=== PATIENT | male | born 1960 | race Two or more races ===

== ENCOUNTER 2019-08-21 08:52 | Observation (INO) | payer BC ==
[~2019-08-21] VITALS: Ht 165.1 cm; Wt 83.1 kg
[~2019-08-21 08:52] MED LIST: CHOL500016 PO; GINK120C PO; HYDR-2679 PO; LISI1TAB19 PO; SIMV40TA18 PO
--- NOTE | 2019-08-21 09:18 | PHYS DOC ---
Past Medical History Additional Past Medical Histor: hypertension high cholesterol and coronary artery disease Additional Past Surgical Histo: history of CABG 2 years ago Smoking: Less than 1pk/day Alcohol Use: None Drug Use: None Adult General Chief Complaint Chief Complaint: syncope HPI HPI 59 yo M presenting to the ED with a syncope. He reports that he was coughing throughout the night. He was feeling mildly lightheaded immediately go the restroom so his helped him over to the commode when he had a syncopal episode. It was a witnessed episode. No shaking or tongue biting. No fecal or urinary incontinence. She was able to gently lay him down to the floor. EMS was called. He woke up within seconds. EMS initially had a low blood pressure on arrival of 90 systolic which has improved upon arrival here his blood pressures in the 140s. He denies any symptoms otherwise and is not coughing in the examination room he does not report any fevers at home and otherwise feels well. He denies prior to the event having any symptoms. He denies palpitations or chest pain prior to the event. He has never had a DVT or PE. Review of systems is negative for headache vision changes slurred speech or focal neurologic deficits. Negative for chest pain abdominal pain vomiting fevers chills. Positive for a dry nonproductive cough overnight. A ED course: 59-year-old male presenting with a syncopal episode. EKG obtained and reviewed by myself shows sinus rhythm with a regular rate. Mild repolarization in lead V2 and V3. Some ST depression in lead 1 and aVL. Does not meet STEMI criteria. CBC shows mildly elevated white blood cell count. Chemistry panel shows mildly elevated creatinine. Troponin normal. D-dimer within normal limits. While the patient was in the emergency department the patient had a episode where he became hypotensive and bradycardic diaphoretic and pale for approximately 20 seconds. He was put in Trendelenburg and his symptoms resolved. He will be admitted for telemetry monitoring and cardiology consultation. I spoke with Dr. Connors who accepts patient for admission. I also spoke with our optical systems engineer about the patient. Current Medications Current Medications Current Medications Medications (Trade) Dose Ordered Sig/Omar Start Time Stop Time Status Last Admin Dose Admin Sodium Chloride 1,000 ml @ 1,000 mls/hr 1X ONCE 08/21/19 10:15 08/21/19 13:05 DC 08/21/19 10:08 1,000 MLS/HR Allergies Allergies Allergies Coded Allergies Type Severity Reaction Last Updated Verified No Known Drug Allergies 03/26/14 No Physical Exam Physical Exam Constitutional: Well developed, well nourished, no acute distress, non-toxic appearance. [] HENT: Normocephalic, atraumatic, bilateral external ears normal, oropharynx moist, no oral exudates, nose normal. [] Eyes: PERRLA, EOMI, conjunctiva normal, no discharge. [] Neck: Normal range of motion, no tenderness, supple, no stridor. [] Cardiovascular:Heart rate regular rhythm, no murmur [] Lungs & Thorax: Bilateral breath sounds clear to auscultation [] Abdomen: Bowel sounds normal, soft, no tenderness, no masses, no pulsatile masses. [] Skin: Warm, dry, no erythema, no rash. [] Back: No tenderness, no CVA tenderness. [] Extremities: No tenderness, no cyanosis, no clubbing, ROM intact, no edema. [] Neurologic: Mental status: Awake oriented and alert x3 Cranial nerves: Extraocular movements intact, eyebrows maddy bilaterally, smile symmetric, uvula elevation nl, shoulder shrug intact bilaterally, tongue pr otrusion normal DTRs: 2+ Sensation: equal and normal in all extremities Strength: 5/5 in upper and lower extremities bilaterally Psychologic: Affect normal, judgement normal, mood normal. [] Current Patient Data Vital Signs Vital Signs Date Time Temp Pulse Resp B/P (MAP) Pulse Ox O2 Delivery O2 Flow Rate FiO2 08/21/19 11:09 74 16 126/64 (84) 94 Room Air 08/21/19 08:56 98.5 98.5 Lab Values Laboratory Tests Test 08/21/19 10:08 White Blood Count 12.6 x10^3/uL (4.0-11.0) H Red Blood Count 4.90 x10^6/uL (4.30-5.70) Hemoglobin 14.9 g/dL (13.0-17.5) Hematocrit 42.9 % (39.0-53.0) Mean Corpuscular Volume 88 fL (79-100) Mean Corpuscular Hemoglobin 31 pg (25-35) Mean Corpuscular Hemoglobin Concent 35 g/dL (31-37) Red Cell Distribution Width 13.2 % (11.5-14.5) Platelet Count 160 x10^3/uL (140-400) Neutrophils (%) (Auto) 65 % (31-73) Lymphocytes (%) (Auto) 26 % (24-48) Monocytes (%) (Auto) 8 % (0-9) Eosinophils (%) (Auto) 1 % (0-3) Basophils (%) (Auto) 1 % (0-3) Neutrophils # (Auto) 8.2 x10^3/uL (1.8-7.7) H Lymphocytes # (Auto) 3.3 x10^3/uL (1.0-4.8) Monocytes # (Auto) 0.9 x10^3/uL (0.0-1.1) Eosinophils # (Auto) 0.1 x10^3/uL (0.0-0.7) Basophils # (Auto) 0.1 x10^3/uL (0.0-0.2) D-Dimer (Marianne) 0.43 ug/mlFEU (0.00-0.50) Sodium Level 134 mmol/L (136-145) L Potassium Level 4.1 mmol/L (3.5-5.1) Chloride Level 100 mmol/L (98-107) Carbon Dioxide Level 23 mmol/L (21-32) Anion Gap 11 (6-14) Blood Urea Nitrogen 16 mg/dL (8-26) Creatinine 1.5 mg/dL (0.7-1.3) H Estimated GFR (Cockcroft-Gault) 47.6 BUN/Creatinine Ratio 11 (6-20) Glucose Level 111 mg/dL (70-99) H Calcium Level 9.2 mg/dL (8.5-10.1) Magnesium Level 1.9 mg/dL (1.8-2.4) Total Bilirubin 0.4 mg/dL (0.2-1.0) Aspartate Amino Transferase (AST) 19 U/L (15-37) Alanine Aminotransferase (ALT) 23 U/L (16-63) Alkaline Phosphatase 57 U/L (46-116) Troponin I Quantitative < 0.017 ng/mL (0.000-0.055) Total Protein 6.9 g/dL (6.4-8.2) Albumin 3.6 g/dL (3.4-5.0) Albumin/Globulin Ratio 1.1 (1.0-1.7) Triglycerides Level 149 mg/dL (0-150) Cholesterol Level 198 mg/dL (0-200) LDL Cholesterol, Calculated 136 mg/dL (0-100) H VLDL Cholesterol, Calculated 30 mg/dL (0-40) Non-HDL Cholesterol Calculated 166 mg/dL (0-129) H HDL Cholesterol 32 mg/dL (40-60) L Cholesterol/HDL Ratio 6.2 Thyroid Stimulating Hormone (TSH) 1.945 uIU/mL (0.358-3.74) Laboratory Tests 08/21/19 10:08 Laboratory Tests 08/21/19 10:08 EKG EKG [] Radiology/Procedures Radiology/Procedures [] Course & Med Decision Making Course & Med Decision Making Pertinent Labs and Imaging studies reviewed. (See chart for details) [] Dragon Disclaimer Dragon Disclaimer This electronic medical record was generated, in whole or in part, using a voice recognition dictation system. Departure Departure Impression: Primary Impression: Syncope Disposition: ADMITTED INPATIENT Condition: STABLE Referrals: ROOPA PRICE MD (PCP) JOSELYN MILLER MD Aug 21, 2019 09:18
--- NOTE | 2019-08-21 09:22 | EKG ---
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
--- NOTE | 2019-08-21 09:22 | RAD ---
EXAM: Chest, single view. HISTORY: Syncope. COMPARISON: None. FINDINGS: A frontal view of the chest is obtained. There is no infiltrate, pleural effusion or pneumothorax. The heart is normal in size. There is evidence of prior CABG. IMPRESSION: No acute pulmonary finding. Electronically signed by: Louisa Tavares MD (08/21/2019 9:19 AM) [facility]
[2019-08-21] MEDS ORDERED: IV NORMAL SALINE 1000ML BAG 1,000 ML IV ONE (10:15)
[2019-08-21 10:19] LABS: BASO # 0.1 x10^3/uL (0.0-0.2); BASO % 1 % (0-3); EOS # 0.1 x10^3/uL (0.0-0.7); EOS % 1 % (0-3); HEMATOCRIT 42.9 % (39.0-53.0); HEMOGLOBIN 14.9 g/dL (13.0-17.5); LYMPH # 3.3 x10^3/uL (1.0-4.8); LYMPH % 26 % (24-48); MEAN CORPUSCULAR HEMOGLOBIN 31 pg (25-35); MEAN CORPUSCULAR HGB CONC 35 g/dL (31-37); MEAN CORPUSCULAR VOLUME 88 fL (79-100); MONO # 0.9 x10^3/uL (0.0-1.1); MONO % 8 % (0-9); NEUT # 8.2 x10^3/uL (1.8-7.7); NEUT % 65 % (31-73); PLATELET COUNT 160 x10^3/uL (140-400); RED CELL DISTRIBUTION WIDTH 13.2 % (11.5-14.5); WHITE BLOOD COUNT 12.6 x10^3/uL (4.0-11.0)
[2019-08-21 10:25] LABS: CALCIUM 9.2 mg/dL (8.5-10.1); CREATININE 1.5 mg/dL (0.7-1.3); GFR 47.6; POTASSIUM 4.1 mmol/L (3.5-5.1)
[2019-08-21 10:31] LABS: ALBUMIN 3.6 g/dL (3.4-5.0); ALBUMIN/GLOBULIN RATIO 1.1 (1.0-1.7); MAGNESIUM 1.9 mg/dL (1.8-2.4); TOTAL BILIRUBIN 0.4 mg/dL (0.2-1.0); TOTAL PROTEIN 6.9 g/dL (6.4-8.2)
--- NOTE | 2019-08-21 12:17 | PDOC2 ---
SARAH GARZA MYSQL DATABASE DEVELOPER 08/21/19 1217: CARDIAC CONSULT DATE OF CONSULT Date of Consult DATE: 08/21/19 TIME: 12:13 REASON FOR CONSULT Reason for Consult: Syncope REFERRING PHYSICIAN Referring Physician: Dr. Chamberlain SOURCE Source: Chart review, Patient HISTORY OF PRESENT ILLNESS HISTORY OF PRESENT ILLNESS This is a 59 yo male who presented secondary to syncopal episode. Patient he was eating his breakfast as usual this morning and began feeling nauseated and dizzy. Subsequently passed out. reports he was only out for a brief second. He became alert, but was initially unable to speak. Finally was able to utter that he needed to use the restroom. attempted to get him there but he passed out again. She was able to lower him to the floor. was concerned that he was having a stroke as his right hand was stiff and he was unable to communicate. EMS was called. Patient is currently back to baseline. In ED, staff put another IV in and he passed out briefly again. ED provider reports he became briefly bradycardic when this occurred, although no acute event were recorded on telemetry. Son reports he has passed out before from the sight of blood. Has a history of CAD c/p CABG at [facility] 02/12/2018. Followed with manager mall there for about a year, but has not been back. Was on blood pressure medication, statin, and ASA, but has not taken these in a couple of months. Patient also reporting intermittent diarrhea for some time. Has become more frequent recently. Has been constant for the last 2 weeks. Any time he eats, he immediately has to go to the bathroom and has loose stools. Carotid massage performed at bedside with patient standing. Baseline HR in the low 90's and dropped to 52 and felt dizzy as if he was going to faint and laid back on the bed. No pauses were noted. PAST MEDICAL HISTORY Cardiovascular: CAD, HTN, Hyperlipidemia GI: GERD PAST SURGICAL HISTORY Past Surgical History: CABG, Hernia Repair FAMILY HISTORY Family History: Cancer (leukemia ), Stroke SOCIAL HISTORY Smoke: No ALCOHOL: occassional Drugs: None Lives: with Family ALLERGIES ALLERGIES: Coded Allergies: No Known Drug Allergies (Unverified , 03/26/14) ROS Review of System 14 point ROS conducted with pertinent positives noted above in HPI PHYSICAL EXAM General: Alert, Oriented X3, Cooperative, No acute distress HEENT: Atraumatic, Mucous membr. moist/pink Lungs: Clear to auscultation, Normal air movement Heart: Regular rate, Normal S1, Normal S2, No murmurs Abdomen: Soft, No tenderness Extremities: No edema, Normal pulses Skin: No significant lesion Neuro: Strength at 5/5 X4 ext, Sensation intact Psych/Mental Status: Mental status NL, Mood NL MUSCULOSKELETAL: Osteoarthritic changes both hands VITALS/I&O VITALS/I&O: Vital Signs Date Time Temp Pulse Resp B/P (MAP) Pulse Ox O2 Delivery O2 Flow Rate FiO2 08/21/19 08:56 98.5 86 16 145/69 (94) 95 Room Air 98.5 LABS Lab: Laboratory Tests Test 08/21/19 10:08 White Blood Count 12.6 x10^3/uL (4.0-11.0) H Red Blood Count 4.90 x10^6/uL (4.30-5.70) Hemoglobin 14.9 g/dL (13.0-17.5) Hematocrit 42.9 % (39.0-53.0) Mean Corpuscular Volume 88 fL (79-100) Mean Corpuscular Hemoglobin 31 pg (25-35) Mean Corpuscular Hemoglobin Concent 35 g/dL (31-37) Red Cell Distribution Width 13.2 % (11.5-14.5) Platelet Count 160 x10^3/uL (140-400) Neutrophils (%) (Auto) 65 % (31-73) Lymphocytes (%) (Auto) 26 % (24-48) Monocytes (%) (Auto) 8 % (0-9) Eosinophils (%) (Auto) 1 % (0-3) Basophils (%) (Auto) 1 % (0-3) Neutrophils # (Auto) 8.2 x10^3/uL (1.8-7.7) H Lymphocytes # (Auto) 3.3 x10^3/uL (1.0-4.8) Monocytes # (Auto) 0.9 x10^3/uL (0.0-1.1) Eosinophils # (Auto) 0.1 x10^3/uL (0.0-0.7) Basophils # (Auto) 0.1 x10^3/uL (0.0-0.2) D-Dimer (Marianne) 0.43 ug/mlFEU (0.00-0.50) Sodium Level 134 mmol/L (136-145) L Potassium Level 4.1 mmol/L (3.5-5.1) Chloride Level 100 mmol/L (98-107) Carbon Dioxide Level 23 mmol/L (21-32) Anion Gap 11 (6-14) Blood Urea Nitrogen 16 mg/dL (8-26) Creatinine 1.5 mg/dL (0.7-1.3) H Estimated GFR (Cockcroft-Gault) 47.6 BUN/Creatinine Ratio 11 (6-20) Glucose Level 111 mg/dL (70-99) H Calcium Level 9.2 mg/dL (8.5-10.1) Magnesium Level 1.9 mg/dL (1.8-2.4) Total Bilirubin 0.4 mg/dL (0.2-1.0) Aspartate Amino Transferase (AST) 19 U/L (15-37) Alanine Aminotransferase (ALT) 23 U/L (16-63) Alkaline Phosphatase 57 U/L (46-116) Troponin I Quantitative < 0.017 ng/mL (0.000-0.055) Total Protein 6.9 g/dL (6.4-8.2) Albumin 3.6 g/dL (3.4-5.0) Albumin/Globulin Ratio 1.1 (1.0-1.7) Laboratory Tests 08/21/19 10:08 Laboratory Tests 08/21/19 10:08 ASSESSMENT/PLAN ASSESSMENT/PLAN 1. Syncope; likely vasovagal. Possible dehydration component 2. CAD s/p CABG 02/12/[address] [facility] 3. Hypertension; controlled 4. Hyperlipidemia; has not been taking statin for 2 months 5. CHRISTOPHER 6. Diarrhea; persistent x2 weeks Recommendations Monitor tele Agree with IVFs Echo to assess LV systolic function Obtain cardiac records from [facility] Resume ASA, statin therapy VICKY BLACKWELL MD 08/22/19 0814: CARDIAC CONSULT ASSESSMENT/PLAN ASSESSMENT/PLAN Patient seen and examined 08/21/19. Agree with STRAW HAT PRESSER's assessment and plan. Syncope appears to be vasovagal in the background of dehydration 2-D echo showed normal LV function without any significant structural abnormalities CAD status clinically stable We will consider event monitor as an outpatient Continue intravenous hydration Thank you for your consultation SARAH GARZA APRN Aug 21, 2019 12:17 VICKY BLACKWELL MD Aug 22, 2019 08:14
[2019-08-21 12:47] LABS: CHOLESTEROL/HDL RATIO 6.2
--- NOTE | 2019-08-21 13:41 | EKG ---
[facility] [address] [place] [address] Test Date: 2019-08-21 Test Time: 10:07:12 Pat Name: SHAVON TEJADA Department: Room: 210 1 Gender: M Configuration Engineer: : 1960 Requested By: JOSELYN MILLER Order Number: [id number] Reading MD: Measurements Intervals [place] Rate: 64 P: 45 [place]: 168 QRS: 51 QRSD: 90 T: 89 QT: 418 QTc: 431 Interpretive Statements SINUS RHYTHM LEFT ATRIAL ABNORMALITY T ABNORMALITY IN ANTERIOR LEADS HIGH LATERAL LEADS ABNORMAL ECG RI6.01 No previous ECG available for comparison
--- NOTE | 2019-08-21 14:20 | NUR ---
The patient, SHAVON TEJADA, 59 y/o, M admitted by JORDANA RINCON III, DO, was given written information regarding hospital policies, unit procedures and contact persons. Patient arrived to unit via gurney, ambulated to bed by self. No complaints of dizziness, VSS. at bedside. Call light within reach. Will continue to monitor.
[2019-08-21 14:24] VITALS: BP 132/74
--- NOTE | 2019-08-21 16:05 | CARD ---
MR#: [id number] Date of Study: 08/21/2019 Ordering Physician: SARAH GARZA, Referring Physician: SARAH GARZA, Tech: Ignacia Harding [facility] APPROVED REPORT EXAM: Two-dimensional and M-mode echocardiogram with Doppler and color Doppler. Other Information Quality : Good INDICATION Syncope 2D DIMENSIONS RVDd2.9 (2.9-3.5cm)Left Atrium(2D)3.4 (1.6-4.0cm) IVSd1.0 (0.7-1.1cm)Aortic Root(2D)3.6 (2.0-3.7cm) LVDd4.7 (3.9-5.9cm)LVOT Diameter2.2 (1.8-2.4cm) PWd1.1 (0.7-1.1cm)LVDs3.6 (2.5-4.0cm) FS (%) 24.1 %SV50.2 ml LVEF(%)48.0 (>50%) Aortic Valve AoV Peak Jonathan.98.6cm/sAoV VTI16.8cm AO Peak GR.3.9mmHgLVOT Peak Jonathan.92.9cm/s AO Mean GR.2mmHgAVA (VMAX)3.56cm2 MALENA (VTI)4.30cm2 Mitral Valve MV E Zlqqgqdi51.2cm/sMV DECEL HKDF030kh MV A Ufukeaik40.7cm/sE/A Ratio1.3 Tricuspid Valve TR P. Lyeynmlh190lq/sRAP [id number] TR Peak Gr.21sxEnEWZZ32awKy Pulmonary Vein S1 Cpesupox62.6cm/sD2 Tmkukwch50.8cm/s LEFT VENTRICLE The left ventricle is normal size. There is normal left ventricular wall thickness. The left ventricu lar systolic function is normal. The ejection fraction is 50-55%. Septal motion consistent with post- operative state. Transmitral Doppler flow pattern is Grade II-pseudonormal filling dynamics. RIGHT VENTRICLE The right ventricle is normal size. The right ventricular systolic function is normal. ATRIA The left atrium size is normal. The right atrium size is normal. The interatrial septum is intact wit h no evidence for an atrial septal defect or patent foramen ovale as noted on 2-D or Doppler imaging. AORTIC VALVE The aortic valve is normal in structure and function. Doppler and Color Flow revealed no significant aortic regurgitation. There is no significant aortic valvular stenosis. MITRAL VALVE The mitral valve is calcified but opens well. There is no evidence of mitral valve prolapse. There is no mitral valve stenosis. Doppler and Color-flow revealed trace to mild mitral regurgitation. TRICUSPID VALVE The tricuspid valve is normal in structure and function. Doppler and Color Flow revealed mild tricusp id regurgitation. The PA pressure was estimated at 25 mmHg. There is no tricuspid valve stenosis. PULMONIC VALVE The pulmonary valve is normal in structure and function. Doppler and Color Flow revealed trace pulmon ic valvular regurgitation. There is no pulmonic valvular stenosis. GREAT VESSELS The aortic root is normal in size. The ascending aorta is not well seen. The IVC is normal in size an d collapses >50% with inspiration. PERICARDIAL EFFUSION There is no evidence of significant pericardial effusion. Critical Notification Critical Value: No <Conclusion> The left ventricular systolic function is normal. The ejection fraction is 50-55%. Trace to mild mitral regurgitation. Mild tricuspid regurgitation. The PA pressure was estimated at 25 mmHg. There is no evidence of significant pericardial effusion. Signed by : Alcides Charles, Electronically Approved : 08/21/2019 16:05:21
[2019-08-21] MEDS ORDERED: LIPITOR80 MG PO (16:06)
[2019-08-21] MEDS ORDERED: CARV12.511 PO (16:06)
[2019-08-21] MEDS ORDERED: ASPI-630 PO (16:06)
[2019-08-21] MEDS: ASPIRIN ENTERIC COATED 81 MG TABLET.DR. PO SCH (17:10)
--- NOTE | 2019-08-21 17:19 | PDOC1 ---
History and Physical Date of Admission: Date of Admission DATE: 08/21/19 TIME: 17:16 Chief Complaint: Problems: (1) Inguinal hernia recurrent bilateral (2) Syncope Chief Complain: syncope History of Present Illness: HPI: This is a pleasant 59-year-old male who presented with a syncopal episode. His witnessed it He was coughing throughout the night He felt kind of lightheaded He denies any incontinence but states he did lose consciousness Rates his symptoms at 7 out of 10 When he woke up he was slightly confused He's been having presyncopal episodes for some time He's tried taking more medications but that did not seem to help Moving makes it worse in stomach some better when he is dizzy I discussed the case with the ER physician we are going to admit the patient and consult cardiology Past Medical/Surgical History: PMH/PSH: Additional Past Medical Histor: hypertension high cholesterol and coronary artery disease Additional Past Surgical Histo: history of CABG 2 years ago Smoking: Less than 1pk/day Allergies: Allergies: Coded Allergies: No Known Drug Allergies (Unverified , 03/26/14) Family History: Family History: Coronary artery disease Social History: Social Hisoty: He does not drink or take drugs 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 Current Medications: Current Medications Current Medications Sodium Chloride 1,000 ml @ 1,000 mls/hr 1X ONCE IV Last administered on 08/21/19at 10:08; Start 08/21/19 at 10:15; Stop 08/21/19 at 13:05; Status DC Aspirin (Ecotrin) 81 mg DAILYWBKFT PO Last administered on 08/21/19at 17:10; Start 08/21/19 at 15:00 Atorvastatin Calcium (Lipitor) 40 mg QHS PO ; Start 08/21/19 at 21:00 Active Scripts Active Reported Aspirin 81 Mg Tab.chew 1 Tab PO DAILY Lipitor (Atorvastatin Calcium) 80 Mg Tablet 80 Mg PO HS Carvedilol (Carvedilol) 12.5 Mg Tablet 12.5 Mg PO BIDWMEALS ROS: Review of Systems Review of System REVIEW OF SYSTEMS: GENERAL: Denies weakness SKIN: No bruising, hair changes or rashes. EYES: No blurred, double or loss of vision. NOSE AND THROAT: No history of nosebleeds, hoarseness or sore throat. HEART: No history of palpitations, chest pain or shortness of breath on exertion. LUNGS: Denies cough, hemoptysis, wheezing or shortness of breath. GASTROINTESTINAL: Denies changes in appetite, nausea, vomiting, diarrhea or constipation. GENITOURINARY: No history of frequency, urgency, hesitancy or nocturia. NEUROLOGIC: Complains of syncopal episode and presyncopal episodes PSYCHIATRIC: No history of panic, anxiety or depression. ENDOCRINE: No history of heat or cold intolerance, polyuria or polydipsia. EXTREMITIES: Denies joint pain, pain on walking or stiffness. Physical Exam: Vital Signs: Vital Signs Date Time Temp Pulse Resp B/P (MAP) Pulse Ox O2 Delivery O2 Flow Rate FiO2 08/21/19 15:00 Room Air 08/21/19 14:24 98.2 77 18 132/74 (93) 96 98.2 Physcial Exam: GEN: No apparent distress. Alert and oriented HEENT: Normal cephalic, atraumatic, external auditory canals are patent EYES: Extraocular muscles are intact, pupil are equally round and reactive to light and accommodation MUSCULOSKELETAL: Well developed , well nourished, good range of motion ENDOCRINE: No thyromegaly was palpated LYMPHATICS: No cervical chain or axillary nodes were noted HEMATOPOIETIC: No bruising NECK: Supple, no JVD, no thyromegaly was noted LUNGS: Clear to auscultation in all lung gould without rhonchi or wheezing HEART: RRR, S!, S2 present. Peripheral pulses intact, no obvious murmurs noted ABDOMEN: Soft, nontender. Positive bowel sounds, no organomegaly, normal bowel sounds EXTREMITIES: Without clubbing, cyanosis, or edema. Pedal pulses intact. Negative Homans sign NEUROLOGIC: Normal speech and tone. A&O x 3, moves all extremities, no obvious focal deficits PSYCHIATRIC: Normal affect, normal mood. Stable SKIN: No ulcerations or rashes, good skin turgor, no jaundice VASCULAR: Good capillary refill, neurovascular bundle appears to be intact Labs: Labs: Laboratory Tests Test 08/21/19 10:08 08/21/19 14:18 White Blood Count 12.6 x10^3/uL (4.0-11.0) Red Blood Count 4.90 x10^6/uL (4.30-5.70) Hemoglobin 14.9 g/dL (13.0-17.5) Hematocrit 42.9 % (39.0-53.0) Mean Corpuscular Volume 88 fL (79-100) Mean Corpuscular Hemoglobin 31 pg (25-35) Mean Corpuscular Hemoglobin Concent 35 g/dL (31-37) Red Cell Distribution Width 13.2 % (11.5-14.5) Platelet Count 160 x10^3/uL (140-400) Neutrophils (%) (Auto) 65 % (31-73) Lymphocytes (%) (Auto) 26 % (24-48) Monocytes (%) (Auto) 8 % (0-9) Eosinophils (%) (Auto) 1 % (0-3) Basophils (%) (Auto) 1 % (0-3) Neutrophils # (Auto) 8.2 x10^3/uL (1.8-7.7) Lymphocytes # (Auto) 3.3 x10^3/uL (1.0-4.8) Monocytes # (Auto) 0.9 x10^3/uL (0.0-1.1) Eosinophils # (Auto) 0.1 x10^3/uL (0.0-0.7) Basophils # (Auto) 0.1 x10^3/uL (0.0-0.2) D-Dimer (Marianne) 0.43 ug/mlFEU (0.00-0.50) Sodium Level 134 mmol/L (136-145) Potassium Level 4.1 mmol/L (3.5-5.1) Chloride Level 100 mmol/L (98-107) Carbon Dioxide Level 23 mmol/L (21-32) Anion Gap 11 (6-14) Blood Urea Nitrogen 16 mg/dL (8-26) Creatinine 1.5 mg/dL (0.7-1.3) Estimated GFR (Cockcroft-Gault) 47.6 BUN/Creatinine Ratio 11 (6-20) Glucose Level 111 mg/dL (70-99) Calcium Level 9.2 mg/dL (8.5-10.1) Magnesium Level 1.9 mg/dL (1.8-2.4) Total Bilirubin 0.4 mg/dL (0.2-1.0) Aspartate Amino Transf (AST/SGOT) 19 U/L (15-37) Alanine Aminotransferase (ALT/SGPT) 23 U/L (16-63) Alkaline Phosphatase 57 U/L (46-116) Troponin I Quantitative < 0.017 ng/mL (0.000-0.055) < 0.017 ng/mL (0.000-0.055) Total Protein 6.9 g/dL (6.4-8.2) Albumin 3.6 g/dL (3.4-5.0) Albumin/Globulin Ratio 1.1 (1.0-1.7) Triglycerides Level 149 mg/dL (0-150) Cholesterol Level 198 mg/dL (0-200) LDL Cholesterol, Calculated 136 mg/dL (0-100) VLDL Cholesterol, Calculated 30 mg/dL (0-40) Non-HDL Cholesterol Calculated 166 mg/dL (0-129) HDL Cholesterol 32 mg/dL (40-60) Cholesterol/HDL Ratio 6.2 Thyroid Stimulating Hormone (TSH) 1.945 uIU/mL (0.358-3.74) Laboratory Tests Test 08/21/19 10:08 08/21/19 14:18 White Blood Count 12.6 x10^3/uL (4.0-11.0) Red Blood Count 4.90 x10^6/uL (4.30-5.70) Hemoglobin 14.9 g/dL (13.0-17.5) Hematocrit 42.9 % (39.0-53.0) Mean Corpuscular Volume 88 fL (79-100) Mean Corpuscular Hemoglobin 31 pg (25-35) Mean Corpuscular Hemoglobin Concent 35 g/dL (31-37) Red Cell Distribution Width 13.2 % (11.5-14.5) Platelet Count 160 x10^3/uL (140-400) Neutrophils (%) (Auto) 65 % (31-73) Lymphocytes (%) (Auto) 26 % (24-48) Monocytes (%) (Auto) 8 % (0-9) Eosinophils (%) (Auto) 1 % (0-3) Basophils (%) (Auto) 1 % (0-3) Neutrophils # (Auto) 8.2 x10^3/uL (1.8-7.7) Lymphocytes # (Auto) 3.3 x10^3/uL (1.0-4.8) Monocytes # (Auto) 0.9 x10^3/uL (0.0-1.1) Eosinophils # (Auto) 0.1 x10^3/uL (0.0-0.7) Basophils # (Auto) 0.1 x10^3/uL (0.0-0.2) D-Dimer (Marianne) 0.43 ug/mlFEU (0.00-0.50) Sodium Level 134 mmol/L (136-145) Potassium Level 4.1 mmol/L (3.5-5.1) Chloride Level 100 mmol/L (98-107) Carbon Dioxide Level 23 mmol/L (21-32) Anion Gap 11 (6-14) Blood Urea Nitrogen 16 mg/dL (8-26) Creatinine 1.5 mg/dL (0.7-1.3) Estimated GFR (Cockcroft-Gault) 47.6 BUN/Creatinine Ratio 11 (6-20) Glucose Level 111 mg/dL (70-99) Calcium Level 9.2 mg/dL (8.5-10.1) Magnesium Level 1.9 mg/dL (1.8-2.4) Total Bilirubin 0.4 mg/dL (0.2-1.0) Aspartate Amino Transf (AST/SGOT) 19 U/L (15-37) Alanine Aminotransferase (ALT/SGPT) 23 U/L (16-63) Alkaline Phosphatase 57 U/L (46-116) Troponin I Quantitative < 0.017 ng/mL (0.000-0.055) < 0.017 ng/mL (0.000-0.055) Total Protein 6.9 g/dL (6.4-8.2) Albumin 3.6 g/dL (3.4-5.0) Albumin/Globulin Ratio 1.1 (1.0-1.7) Triglycerides Level 149 mg/dL (0-150) Cholesterol Level 198 mg/dL (0-200) LDL Cholesterol, Calculated 136 mg/dL (0-100) VLDL Cholesterol, Calculated 30 mg/dL (0-40) Non-HDL Cholesterol Calculated 166 mg/dL (0-129) HDL Cholesterol 32 mg/dL (40-60) Cholesterol/HDL Ratio 6.2 Thyroid Stimulating Hormone (TSH) 1.945 uIU/mL (0.358-3.74) Images: Images EXAM: Chest, single view. HISTORY: Syncope. COMPARISON: None. FINDINGS: A frontal view of the chest is obtained. There is no infiltrate, pleural effusion or pneumothorax. The heart is normal in size. There is evidence of prior CABG. IMPRESSION: No acute pulmonary finding. Assessment/Plan Assessment/Plan Syncope Plan Cardiac monitoring Serial enzymes Serial EKGs We'll consider an echo if cardiology agrees Consult cardiology Home meds DVT prophylaxis IV fluids Full code JORDANA RINCON III DO Aug 21, 2019 17:19
[2019-08-21] MEDS: guaiFENesin/CODEINE 100mg/10mg 5 ML LIQUID PO PRN ×2 (18:41→20:41)
[2019-08-21] MEDS: CARVEDILOL 12.5 MG TABLET. PO SCH (18:45)
[2019-08-21 18:47] VITALS: BP 152/72
[2019-08-21] MEDS ORDERED: ATORVASTATIN CALCIUM 40 MG TABLET. PO SCH (21:00)
[2019-08-21 22:27] VITALS: BP 142/76
[2019-08-22 02:20] VITALS: BP 137/79
[2019-08-22 03:58] LABS: BASO % 0 % (0-3); EOS # 0.1 x10^3/uL (0.0-0.7); EOS % 2 % (0-3); HEMATOCRIT 41.2 % (39.0-53.0); HEMOGLOBIN 14.5 g/dL (13.0-17.5); LYMPH # 2.4 x10^3/uL (1.0-4.8); LYMPH % 34 % (24-48); MEAN CORPUSCULAR HEMOGLOBIN 31 pg (25-35); MEAN CORPUSCULAR HGB CONC 35 g/dL (31-37); MEAN CORPUSCULAR VOLUME 87 fL (79-100); MONO # 0.6 x10^3/uL (0.0-1.1); MONO % 9 % (0-9); NEUT # 3.9 x10^3/uL (1.8-7.7); NEUT % 56 % (31-73); PLATELET COUNT 135 x10^3/uL (140-400); RED BLOOD COUNT 4.72 x10^6/uL (4.30-5.70); RED CELL DISTRIBUTION WIDTH 13.2 % (11.5-14.5); WHITE BLOOD COUNT 7.1 x10^3/uL (4.0-11.0)
[2019-08-22 04:16] LABS: CALCIUM 8.7 mg/dL (8.5-10.1); CREATININE 1.1 mg/dL (0.7-1.3); GFR 68.1; POTASSIUM 4.1 mmol/L (3.5-5.1)
[2019-08-22 07:00] VITALS: BP 152/82
[2019-08-22 08:31] VITALS: BP 145/74
[2019-08-22 08:34] VITALS: BP 145/81
[2019-08-22 08:37] VITALS: BP 84/58
[2019-08-22] MEDS: ASPIRIN ENTERIC COATED 81 MG TABLET.DR. PO SCH (09:04)
[2019-08-22] MEDS: CARVEDILOL 12.5 MG TABLET. PO SCH (09:04)
--- NOTE | 2019-08-22 10:32 | PDOC ---
[employer] PROGRESS NOTE Chief Complaint Chief Complaint Syncope Hypertension Hyperlipidemia Coronary artery disease s/p CABG GERD CHRISTOPHER- Acute tubular necrosis Diarrhea History of Present Illness History of Present Illness 08/22/19 Pt seen and examined Pt was laying in bed He reports he is doing well He denies additional syncopal episodes last night and this morning Pt's chart reviewed Vitals/I&O Vitals/I&O: Vital Signs Date Time Temp Pulse Resp B/P (MAP) Pulse Ox O2 Delivery O2 Flow Rate FiO2 08/22/19 09:04 74 147/74 08/22/19 08:00 Room Air 08/22/19 07:00 98.8 20 96 98.8 I & O 08/21/19 08/21/19 08/22/19 15:00 23:00 07:00 Intake Total 1000 ml 580 ml 400 ml Balance 1000 ml 580 ml 400 ml Physical Exam General: Alert, Oriented X3, Cooperative, No acute distress Heart: Regular rate, Normal S1, Normal S2, No murmurs Lungs: Clear Abdomen: Soft, No tenderness Extremities: No edema, Normal pulses Skin: No significant lesion Labs Labs: Laboratory Tests Test 08/21/19 14:18 08/21/19 17:50 08/22/19 03:35 Troponin I Quantitative < 0.017 ng/mL (0.000-0.055) < 0.017 ng/mL (0.000-0.055) White Blood Count 7.1 x10^3/uL (4.0-11.0) Red Blood Count 4.72 x10^6/uL (4.30-5.70) Hemoglobin 14.5 g/dL (13.0-17.5) Hematocrit 41.2 % (39.0-53.0) Mean Corpuscular Volume 87 fL (79-100) Mean Corpuscular Hemoglobin 31 pg (25-35) Mean Corpuscular Hemoglobin Concent 35 g/dL (31-37) Red Cell Distribution Width 13.2 % (11.5-14.5) Platelet Count 135 x10^3/uL (140-400) Neutrophils (%) (Auto) 56 % (31-73) Lymphocytes (%) (Auto) 34 % (24-48) Monocytes (%) (Auto) 9 % (0-9) Eosinophils (%) (Auto) 2 % (0-3) Basophils (%) (Auto) 0 % (0-3) Neutrophils # (Auto) 3.9 x10^3/uL (1.8-7.7) Lymphocytes # (Auto) 2.4 x10^3/uL (1.0-4.8) Monocytes # (Auto) 0.6 x10^3/uL (0.0-1.1) Eosinophils # (Auto) 0.1 x10^3/uL (0.0-0.7) Basophils # (Auto) 0.0 x10^3/uL (0.0-0.2) Sodium Level 135 mmol/L (136-145) Potassium Level 4.1 mmol/L (3.5-5.1) Chloride Level 101 mmol/L (98-107) Carbon Dioxide Level 26 mmol/L (21-32) Anion Gap 8 (6-14) Blood Urea Nitrogen 16 mg/dL (8-26) Creatinine 1.1 mg/dL (0.7-1.3) Estimated GFR (Cockcroft-Gault) 68.1 Glucose Level 95 mg/dL (70-99) Calcium Level 8.7 mg/dL (8.5-10.1) Review of Systems Review of Systems: no c/o CP no c/o SOB no c/o dizziness no c/o N/V Assessment and Plan Assessmemt and Plan Problems Medical Problems: (1) Syncope Status: Acute Assessment Syncope Hypertension Hyperlipidemia Coronary artery disease s/p CABG GERD CHRISTOPHER- Acute tubular necrosis Diarrhea Plan Cardiology following Completed ECHO with EF 50-55% without any significant structural abnormalities Cardiac monitoring Home meds DVT prophylaxis IV fluids Full code Plan for d/c pending specialists Comment Review of Relevant I have reviewed the following items ari (where applicable) has been applied. Medications: Current Medications Medications (Trade) Dose Ordered Sig/Omar Route PRN Reason Start Time Stop Time Status Last Admin Dose Admin Aspirin (Ecotrin) 81 mg DAILYWBKFT PO 08/21/19 15:00 08/22/19 09:04 Atorvastatin Calcium (Lipitor) 40 mg QHS PO 08/21/19 21:00 08/21/19 20:39 Guaifenesin/ Codeine Phosphate (Robitussin Ac) 5 ml PRN Q4HRS PRN PO COUGH 08/21/19 17:45 08/21/19 20:41 Carvedilol (Coreg) 12.5 mg BIDWMEALS PO 08/21/19 18:30 08/22/19 09:04 JORDANA RINCON III DO Aug 22, 2019 10:32
[2019-08-22 11:00] VITALS: BP 137/69
--- NOTE | 2019-08-22 14:10 | NUR ---
SS following for discharge planning. SS reviewed pt chart. Pt is from home with spouse and is currently on room air. SS will continue to follow for discharge planning.
--- NOTE | 2019-08-22 14:17 | PDOC ---
CARDIO Progress Notes Date and Time Date of Service 08/22/19 Time of Evaluation 1410 Subjective Subjective: No Chest Pain, No shortness of breath, No Palpitations Vitals Vitals Vital Signs Date Time Temp Pulse Resp B/P (MAP) Pulse Ox O2 Delivery O2 Flow Rate FiO2 08/22/19 11:00 98.8 82 18 137/69 (91) 93 Room Air 98.8 Weight Weight [ ] Input and Output Intake and Output Intake and Output 08/22/19 07:00 Intake Total 1980 ml Balance 1980 ml Intake Oral 980 ml IV Total 1000 ml # Voids 3 Laboratory Labs Laboratory Tests Test 08/21/19 14:18 08/21/19 17:50 08/22/19 03:35 Troponin I Quantitative < 0.017 ng/mL (0.000-0.055) < 0.017 ng/mL (0.000-0.055) White Blood Count 7.1 x10^3/uL (4.0-11.0) Red Blood Count 4.72 x10^6/uL (4.30-5.70) Hemoglobin 14.5 g/dL (13.0-17.5) Hematocrit 41.2 % (39.0-53.0) Mean Corpuscular Volume 87 fL (79-100) Mean Corpuscular Hemoglobin 31 pg (25-35) Mean Corpuscular Hemoglobin Concent 35 g/dL (31-37) Red Cell Distribution Width 13.2 % (11.5-14.5) Platelet Count 135 x10^3/uL (140-400) Neutrophils (%) (Auto) 56 % (31-73) Lymphocytes (%) (Auto) 34 % (24-48) Monocytes (%) (Auto) 9 % (0-9) Eosinophils (%) (Auto) 2 % (0-3) Basophils (%) (Auto) 0 % (0-3) Neutrophils # (Auto) 3.9 x10^3/uL (1.8-7.7) Lymphocytes # (Auto) 2.4 x10^3/uL (1.0-4.8) Monocytes # (Auto) 0.6 x10^3/uL (0.0-1.1) Eosinophils # (Auto) 0.1 x10^3/uL (0.0-0.7) Basophils # (Auto) 0.0 x10^3/uL (0.0-0.2) Sodium Level 135 mmol/L (136-145) Potassium Level 4.1 mmol/L (3.5-5.1) Chloride Level 101 mmol/L (98-107) Carbon Dioxide Level 26 mmol/L (21-32) Anion Gap 8 (6-14) Blood Urea Nitrogen 16 mg/dL (8-26) Creatinine 1.1 mg/dL (0.7-1.3) Estimated GFR (Cockcroft-Gault) 68.1 Glucose Level 95 mg/dL (70-99) Calcium Level 8.7 mg/dL (8.5-10.1) Physical Exam HEENT: Neck Supple W Full Motion Chest: Symmetric LUNGS: Clear to Auscultation Heart: S1S2, RRR Abdomen: Soft N/T Extremities: No Edema Neurology: alert, oriented, follow commands Assessment Assessment 1. Syncope; likely vasovagal with dehydration component. Echo with preserved LV systolic function, no significant structural abnormalities. No arrhythmias on tele 2. CAD s/p CABG 02/12/2018 at [facility] .clinically stable. CP free 3. Hypertension; controlled 4. Hyperlipidemia; statin resumed 5. CHRISTOPHER; resolved with hydration 6. Diarrhea; persistent x2 weeks Recommendations Encouraged oral hydration Continue secondary prevention; reinforced importance of medical compliance May discharge from a CV standpoint Will arrange for outpatient [facility] to r/o arrhythmia Follow up with Dr. Charles 10/03/19 at 1:30pm SARAH GARZA APRN Aug 22, 2019 14:17
[2019-08-22] MEDS ORDERED: CARV12.511 PO (14:28)
[2019-08-22] MEDS ORDERED: ASPI-630 PO (14:28)
[2019-08-22] MEDS ORDERED: LIPITOR80 MG PO (14:28)
--- NOTE | 2019-08-22 15:20 | NUR ---
Discharge Note: SHAVON TEJADA [address] [place] Discharge instructions and discharge home medications reviewed with Patient and a copy given. All questions have been answered and understanding verbalized. The following instructions and handouts were given: discharge instructions, syncope info, med info, follow up appt. Discontinued lines and drains: Peripheral IV intact. Patient discharged to Home or Self Care with Spouse via Ambulated at 1520.
== END 2019-08-22 15:17 | disposition home or self-care (01) ==
LOC: ER 08:52 → 2 NORTH 11:20
PROVIDERS: ADMIT Internal Medicine; ATTEND Internal Medicine
DX: R55 Syncope and collapse (principal); I10 Essential (primary) hypertension; K40.21 Bilateral inguinal hernia, without obstruction or gangrene, recurrent; E78.00 Pure hypercholesterolemia, unspecified; I25.10 Atherosclerotic heart disease of native coronary artery without angina pectoris; F17.210 Nicotine dependence, cigarettes, uncomplicated; Z95.1 Presence of aortocoronary bypass graft; Z79.82 Long term (current) use of aspirin
CPT/HCPCS: 36415; 71045; 80048; 80053; 80061; 83735; 84443; 84484; 85025; 85379; 93005; 93306; 96360; 99284; G0378; J7030; G0379

== ENCOUNTER → 2020-11-05 | Outpatient (CLI) | payer OTHER ==
[2020-11-03 11:05] VITALS: BP 144/73
[~2020-11-05] MED LIST changes: +ASPI-630 PO; +CARV12.511 PO; +CRESTOR40 MG PO; +DOCU-153 PO; +HYDR2TAB31 PO; +LIPITOR80 MG PO; -LISI1TAB19 PO; +LISI1TAB37 PO; +LOSA25TA54 PO; +SENN-87 PO
[2020-11-05 10:25] LABS: BASO % 0 % (0-3); EOS # 0.2 x10^3/uL (0.0-0.7); EOS % 2 % (0-3); HEMATOCRIT 30.6 % (39.0-53.0); HEMOGLOBIN 10.7 g/dL (13.0-17.5); LYMPH # 3.1 x10^3/uL (1.0-4.8); LYMPH % 30 % (24-48); MEAN CORPUSCULAR HEMOGLOBIN 32 pg (25-35); MEAN CORPUSCULAR HGB CONC 35 g/dL (31-37); MEAN CORPUSCULAR VOLUME 92 fL (79-100); MONO % 10 % (0-9); NEUT % 58 % (31-73); PLATELET COUNT 233 x10^3/uL (140-400); RED BLOOD COUNT 3.31 x10^6/uL (4.30-5.70); RED CELL DISTRIBUTION WIDTH 13.6 % (11.5-14.5); WHITE BLOOD COUNT 10.3 x10^3/uL (4.0-11.0)
[2020-11-05 10:31] LABS: ALBUMIN 3.1 g/dL (3.4-5.0); ALBUMIN/GLOBULIN RATIO 0.7 (1.0-1.7); POTASSIUM 3.7 mmol/L (3.5-5.1); TOTAL BILIRUBIN 0.4 mg/dL (0.2-1.0); TOTAL PROTEIN 7.4 g/dL (6.4-8.2)
[2020-11-05 10:34] LABS: CALCIUM 7.5 mg/dL (8.5-10.1); CREATININE 1.6 mg/dL (0.7-1.3)
== END ==
LOC: ONCLAB 10:04
PROVIDERS: ATTEND Internal Medicine Hematology & Oncology
DX: C90.00 Multiple myeloma not having achieved remission (principal)
CPT/HCPCS: 36415; 80053; 85025; 86704; 86706; 86803

== ENCOUNTER → 2020-11-10 | Outpatient (CLI) | payer OTHER ==
[2020-11-03 11:05] VITALS: BP 144/73
[2020-11-13 16:19] LABS: ALBUMIN UR 21.5 % (.); ALPHA 1 UR 5.6 % (.); ALPHA 2 UR 19.7 % (.); BETA UR 33.5 % (.); GAMMA UR 19.6 % (.); PROTEIN 24 UR <106 mg/24 hr (30-150); PROTEIN UR <4.0 mg/dL (Not Estab.)
== END ==
LOC: ONCLAB 16:03
PROVIDERS: ATTEND Internal Medicine Hematology & Oncology
DX: C90.00 Multiple myeloma not having achieved remission (principal)
CPT/HCPCS: 36415; 84166

== ENCOUNTER → 2020-11-12 | Outpatient (CLI) | payer OTHER ==
[2020-11-03 11:05] VITALS: BP 144/73
[2020-11-12 11:22] LABS: BASO % 0 % (0-3); EOS # 0.1 x10^3/uL (0.0-0.7); EOS % 1 % (0-3); HEMATOCRIT 28.6 % (39.0-53.0); HEMOGLOBIN 10.1 g/dL (13.0-17.5); LYMPH # 1.5 x10^3/uL (1.0-4.8); LYMPH % 19 % (24-48); MEAN CORPUSCULAR HEMOGLOBIN 33 pg (25-35); MEAN CORPUSCULAR HGB CONC 35 g/dL (31-37); MEAN CORPUSCULAR VOLUME 93 fL (79-100); MONO # 0.5 x10^3/uL (0.0-1.1); MONO % 6 % (0-9); NEUT # 5.9 x10^3/uL (1.8-7.7); NEUT % 74 % (31-73); PLATELET COUNT 218 x10^3/uL (140-400); RED BLOOD COUNT 3.07 x10^6/uL (4.30-5.70); RED CELL DISTRIBUTION WIDTH 13.2 % (11.5-14.5); WHITE BLOOD COUNT 7.9 x10^3/uL (4.0-11.0)
[2020-11-12 11:31] LABS: CALCIUM 9.2 mg/dL (8.5-10.1); CREATININE 1.6 mg/dL (0.7-1.3); POTASSIUM 4.2 mmol/L (3.5-5.1)
[2020-11-12 11:38] LABS: ALBUMIN 3.3 g/dL (3.4-5.0); ALBUMIN/GLOBULIN RATIO 0.7 (1.0-1.7); TOTAL BILIRUBIN 0.4 mg/dL (0.2-1.0); TOTAL PROTEIN 7.8 g/dL (6.4-8.2)
== END ==
LOC: ONCLAB 08:14
PROVIDERS: ATTEND Physician Assistant
DX: C90.00 Multiple myeloma not having achieved remission (principal)
CPT/HCPCS: 36415; 80053; 85025

== ENCOUNTER → 2020-11-13 | Outpatient (CLI) | payer OTHER ==
[2020-11-03 11:05] VITALS: BP 144/73
--- NOTE | 2020-11-16 17:17 | RAD ---
EXAM: PET/CT SCAN INDICATION: Possible myeloma COMPARISON: MRI brain cervical, thoracic, and lumbar spine 10/28/2020 PET/CT SCAN TECHNIQUE: Approximately 60 minutes after the intravenous administration of 15.1millicuri es of F-18 fluorodeoxyglucose (FDG), PET imaging of the body from the base of the skull through the m id thighs was performed. Reconstruction in all 3 planes were performed. The patient's serum glucose l evel at the time of the F-18 FDG administration was 157 mg/dL. A noncontrast CT scan was obtained for attenuation correction and anatomic localization purposes only and is not considered a diagnostic CT scan. PQRS compliance Statement One or more of the following individualized dose reduction techniques were utilized for this study: 1. Automated exposure control 2. Adjustment of the mA and/or kV according to patient size 3. Use of iterative reconstruction technique FINDINGS: Background: Mediastinum SUV max: 2.65 Liver SUV max: 3.34 HEAD AND NECK: There is a lytic lesion in the left skull base involving the occipital condyle with JALLOH V max 2.5 CHEST: No abnormal FDG uptake or lymphadenopathy. Mild atelectasis in the lung bases. No suspicious p ulmonary nodule. No pleural effusion. Heart is normal in size. There are coronary artery calcificatio ns. ABDOMEN AND PELVIS: No abnormal FDG uptake or lymphadenopathy. The liver, pancreas, spleen, adrenal g lands, kidneys, ureters, bladder, prostate gland are normal. There is cholelithiasis. MUSCULOSKELETAL: There are numerous lytic lesions throughout the cervical, thoracic, and lumbar spine , pelvis, ribs, scapulae, and right left humerus. There is FDG uptake in numerous lytic lesion in the pelvis and cervical, thoracic, and lumbar spine. There is mild FDG uptake in numerous lytic lesions in the pelvis. For example, a large lytic right il iac wing lesion with soft tissue component has FDG uptake with SUV max 2.75. Lytic lesion in the righ t hemisacrum at S1 has SUV max 3.16, and in the left hemisacrum at S1, SUV max 2.97. Lytic lesions in the right left posterior iliac bones have SUV max 2.57 and 2.79, respectively. Lytic lesion in the s upra-acetabular right iliac bone has SUV max 2.53. There is low-level FDG uptake in the proximal femo ra at the level of the lesser trochanters with SUV max of 1.9. There is mild FDG uptake and lytic lesions in the thoracic and lumbar spine. For example, T7 lytic le ronny with pathologic fracture has SUV max 3.04. A L3 lytic lesion with pathologic fracture has SUV ma x 4.17. L4 lytic lesion SUV max 4.61. L5 lytic lesion SUV max 3.81. There is low-level FDG uptake in multiple rib lesions. For example, an expansile T7 rib lesion has JALLOH V max 1.9. Low level FDG uptake within a right scapular lytic lesion and left humeral head lytic lesion, SUV max 2.14 and 2.27, respectively. Expansile lytic lesion in the posterior left seventh rib has SUV max. IMPRESSION: 1. Numerous lytic lesions throughout the axial and appendicular skeleton. Lesions in the thoracic and lumbar spine and pelvis are the largest and have mild FDG uptake with SUV max ranging approximately 2.5-4.2, as described. There is low-level FDG uptake in small cervical spine, right scapular and left humeral head lytic lesions, rib lesions, and in the proximal femora at the level of the lesser troch anters, less than 2.5. 2. Lytic lesion in the left skull base involving the epicondyle with SUV max 2.5. 3. No extramedullary disease identified. Electronically signed by: Mariah Francis MD (11/16/2020 5:14 PM) [id number]
== END ==
LOC: PETSC 10:00
PROVIDERS: ATTEND Internal Medicine Hematology & Oncology
DX: C90.00 Multiple myeloma not having achieved remission (principal); G95.89 Other specified diseases of spinal cord
CPT/HCPCS: 78815; A9552

== ENCOUNTER → 2020-11-19 | Outpatient (CLI) | payer OTHER ==
[2020-11-03 11:05] VITALS: BP 144/73
[2020-11-19 09:02] LABS: BASO % 1 % (0-3); EOS # 0.1 x10^3/uL (0.0-0.7); EOS % 3 % (0-3); HEMATOCRIT 29.1 % (39.0-53.0); HEMOGLOBIN 10.2 g/dL (13.0-17.5); LYMPH # 1.4 x10^3/uL (1.0-4.8); LYMPH % 29 % (24-48); MEAN CORPUSCULAR HEMOGLOBIN 33 pg (25-35); MEAN CORPUSCULAR HGB CONC 35 g/dL (31-37); MEAN CORPUSCULAR VOLUME 94 fL (79-100); MONO # 0.4 x10^3/uL (0.0-1.1); MONO % 9 % (0-9); NEUT # 2.8 x10^3/uL (1.8-7.7); NEUT % 60 % (31-73); PLATELET COUNT 274 x10^3/uL (140-400); RED BLOOD COUNT 3.11 x10^6/uL (4.30-5.70); RED CELL DISTRIBUTION WIDTH 13.4 % (11.5-14.5); WHITE BLOOD COUNT 4.7 x10^3/uL (4.0-11.0)
[2020-11-19 09:12] LABS: CALCIUM 8.3 mg/dL (8.5-10.1); CREATININE 1.3 mg/dL (0.7-1.3); GFR 55.9
== END ==
LOC: ONCLAB 08:41
PROVIDERS: ATTEND Physician Assistant
DX: C90.00 Multiple myeloma not having achieved remission (principal)
CPT/HCPCS: 36415; 80048; 85025

== ENCOUNTER → 2020-11-26 | Outpatient (CLI) | payer OTHER ==
[2020-11-03 11:05] VITALS: BP 144/73
[2020-11-26 10:36] LABS: BASO % 0 % (0-3); EOS # 0.1 x10^3/uL (0.0-0.7); EOS % 3 % (0-3); HEMATOCRIT 29.9 % (39.0-53.0); HEMOGLOBIN 10.6 g/dL (13.0-17.5); LYMPH # 0.5 x10^3/uL (1.0-4.8); LYMPH % 10 % (24-48); MEAN CORPUSCULAR HEMOGLOBIN 33 pg (25-35); MEAN CORPUSCULAR HGB CONC 35 g/dL (31-37); MEAN CORPUSCULAR VOLUME 95 fL (79-100); MONO # 0.1 x10^3/uL (0.0-1.1); MONO % 2 % (0-9); NEUT % 85 % (31-73); PLATELET COUNT 202 x10^3/uL (140-400); RED BLOOD COUNT 3.16 x10^6/uL (4.30-5.70); RED CELL DISTRIBUTION WIDTH 14.1 % (11.5-14.5); WHITE BLOOD COUNT 4.7 x10^3/uL (4.0-11.0)
[2020-11-26 11:04] LABS: CALCIUM 8.4 mg/dL (8.5-10.1); CREATININE 0.9 mg/dL (0.7-1.3); GFR 85.5; POTASSIUM 4.1 mmol/L (3.5-5.1)
[2020-11-26 11:09] LABS: ALBUMIN 3.4 g/dL (3.4-5.0); TOTAL BILIRUBIN 0.3 mg/dL (0.2-1.0); TOTAL PROTEIN 6.7 g/dL (6.4-8.2)
[2020-11-27 14:12] LABS: KAPPA FREE 314.4 mg/L (3.3-19.4); KAPPA LAMBDA RATIO 54.21 (0.26-1.65); LAMBDA FREE 5.8 mg/L (5.7-26.3)
[2020-11-27 15:14] LABS: ALBUM 3.5 g/dL (2.9-4.4); ALPHA 1 0.3 g/dL (0.0-0.4); BETA 0.9 g/dL (0.7-1.3); GAMMA 0.4 g/dL (0.4-1.8); PROTEIN TOTAL 6.2 g/dL (6.0-8.5); SPEP AG RATIO 1.3 (0.7-1.7)
== END ==
LOC: ONCLAB 10:18
PROVIDERS: ATTEND Physician Assistant
DX: C90.00 Multiple myeloma not having achieved remission (principal)
CPT/HCPCS: 36415; 80053; 83520; 84165; 85025

== ENCOUNTER → 2020-12-03 | Outpatient (CLI) | payer OTHER ==
[2020-11-03 11:05] VITALS: BP 144/73
[2020-12-03 10:12] LABS: BASO % 0 % (0-3); EOS # 0.2 x10^3/uL (0.0-0.7); EOS % 4 % (0-3); HEMATOCRIT 30.8 % (39.0-53.0); HEMOGLOBIN 10.9 g/dL (13.0-17.5); LYMPH # 0.9 x10^3/uL (1.0-4.8); LYMPH % 16 % (24-48); MEAN CORPUSCULAR HEMOGLOBIN 34 pg (25-35); MEAN CORPUSCULAR HGB CONC 35 g/dL (31-37); MEAN CORPUSCULAR VOLUME 96 fL (79-100); MONO # 0.3 x10^3/uL (0.0-1.1); MONO % 6 % (0-9); NEUT % 73 % (31-73); PLATELET COUNT 175 x10^3/uL (140-400); RED BLOOD COUNT 3.22 x10^6/uL (4.30-5.70); RED CELL DISTRIBUTION WIDTH 14.2 % (11.5-14.5); WHITE BLOOD COUNT 5.5 x10^3/uL (4.0-11.0)
[2020-12-03 10:26] LABS: CALCIUM 8.2 mg/dL (8.5-10.1); GFR 75.7; POTASSIUM 4.3 mmol/L (3.5-5.1)
[2020-12-03 10:30] LABS: ALBUMIN 3.6 g/dL (3.4-5.0); ALBUMIN/GLOBULIN RATIO 1.2 (1.0-1.7); MAGNESIUM 2.2 mg/dL (1.8-2.4); TOTAL BILIRUBIN 0.3 mg/dL (0.2-1.0); TOTAL PROTEIN 6.5 g/dL (6.4-8.2)
== END ==
LOC: ONCLAB 09:33
PROVIDERS: ATTEND Physician Assistant
DX: C90.00 Multiple myeloma not having achieved remission (principal)
CPT/HCPCS: 36415; 80053; 83735; 85025

== ENCOUNTER → 2020-12-10 | Outpatient (CLI) | payer OTHER ==
[2020-11-03 11:05] VITALS: BP 144/73
[2020-12-10 10:22] LABS: BASO % 0 % (0-3); EOS # 0.4 x10^3/uL (0.0-0.7); EOS % 7 % (0-3); HEMATOCRIT 32.5 % (39.0-53.0); HEMOGLOBIN 11.4 g/dL (13.0-17.5); LYMPH # 1.6 x10^3/uL (1.0-4.8); LYMPH % 28 % (24-48); MEAN CORPUSCULAR HEMOGLOBIN 34 pg (25-35); MEAN CORPUSCULAR HGB CONC 35 g/dL (31-37); MEAN CORPUSCULAR VOLUME 96 fL (79-100); MONO # 0.3 x10^3/uL (0.0-1.1); MONO % 5 % (0-9); NEUT # 3.5 x10^3/uL (1.8-7.7); NEUT % 60 % (31-73); PLATELET COUNT 134 x10^3/uL (140-400); RED BLOOD COUNT 3.39 x10^6/uL (4.30-5.70); RED CELL DISTRIBUTION WIDTH 14.8 % (11.5-14.5); WHITE BLOOD COUNT 5.9 x10^3/uL (4.0-11.0)
[2020-12-10 10:32] LABS: CALCIUM 8.5 mg/dL (8.5-10.1); GFR 75.7; POTASSIUM 4.3 mmol/L (3.5-5.1)
[2020-12-10 10:39] LABS: ALBUMIN 3.9 g/dL (3.4-5.0); ALBUMIN/GLOBULIN RATIO 1.3 (1.0-1.7); MAGNESIUM 2.2 mg/dL (1.8-2.4); TOTAL BILIRUBIN 0.4 mg/dL (0.2-1.0); TOTAL PROTEIN 6.9 g/dL (6.4-8.2)
[2020-12-11 18:13] LABS: ALBUM 3.7 g/dL (2.9-4.4); ALPHA 1 0.3 g/dL (0.0-0.4); ALPHA 2 0.9 g/dL (0.4-1.0); BETA 0.9 g/dL (0.7-1.3); GAMMA 0.5 g/dL (0.4-1.8); PROTEIN TOTAL 6.3 g/dL (6.0-8.5); SPEP AG RATIO 1.4 (0.7-1.7)
== END ==
LOC: ONCLAB 10:08
PROVIDERS: ATTEND Internal Medicine Hematology & Oncology
DX: C90.00 Multiple myeloma not having achieved remission (principal)
CPT/HCPCS: 36415; 80053; 83735; 84165; 85025

== ENCOUNTER → 2020-12-17 | Outpatient (CLI) | payer OTHER ==
[2020-11-03 11:05] VITALS: BP 144/73
[2020-12-17 10:16] LABS: BASO % 0 % (0-3); EOS # 0.2 x10^3/uL (0.0-0.7); EOS % 5 % (0-3); HEMATOCRIT 33.2 % (39.0-53.0); HEMOGLOBIN 11.4 g/dL (13.0-17.5); LYMPH # 1.3 x10^3/uL (1.0-4.8); LYMPH % 27 % (24-48); MEAN CORPUSCULAR HEMOGLOBIN 33 pg (25-35); MEAN CORPUSCULAR HGB CONC 34 g/dL (31-37); MEAN CORPUSCULAR VOLUME 97 fL (79-100); MONO # 0.3 x10^3/uL (0.0-1.1); MONO % 6 % (0-9); NEUT # 3.2 x10^3/uL (1.8-7.7); NEUT % 63 % (31-73); PLATELET COUNT 120 x10^3/uL (140-400); RED BLOOD COUNT 3.42 x10^6/uL (4.30-5.70); RED CELL DISTRIBUTION WIDTH 15.2 % (11.5-14.5)
[2020-12-17 10:44] LABS: CALCIUM 8.2 mg/dL (8.5-10.1); GFR 75.7; POTASSIUM 3.7 mmol/L (3.5-5.1)
[2020-12-17 10:49] LABS: ALBUMIN 3.8 g/dL (3.4-5.0); ALBUMIN/GLOBULIN RATIO 1.3 (1.0-1.7); TOTAL BILIRUBIN 0.4 mg/dL (0.2-1.0); TOTAL PROTEIN 6.7 g/dL (6.4-8.2)
[2020-12-18 17:11] LABS: ALBUM 3.7 g/dL (2.9-4.4); ALPHA 1 0.3 g/dL (0.0-0.4); ALPHA 2 0.9 g/dL (0.4-1.0); BETA 0.9 g/dL (0.7-1.3); GAMMA 0.5 g/dL (0.4-1.8); KAPPA LAMBDA RATIO 11.55 (0.26-1.65); LAMBDA FREE 8.4 mg/L (5.7-26.3); PROTEIN TOTAL 6.4 g/dL (6.0-8.5); SPEP AG RATIO 1.4 (0.7-1.7)
== END ==
LOC: ONCLAB 09:41
PROVIDERS: ATTEND Physician Assistant
DX: C90.00 Multiple myeloma not having achieved remission (principal)
CPT/HCPCS: 36415; 80053; 82306; 83520; 84165; 85025

== ENCOUNTER → 2020-12-24 | Outpatient (CLI) | payer OTHER ==
[2020-11-03 11:05] VITALS: BP 144/73
[2020-12-24 09:40] LABS: BASO % 0 % (0-3); EOS # 0.2 x10^3/uL (0.0-0.7); EOS % 4 % (0-3); HEMATOCRIT 33.3 % (39.0-53.0); HEMOGLOBIN 11.4 g/dL (13.0-17.5); LYMPH # 2.6 x10^3/uL (1.0-4.8); LYMPH % 44 % (24-48); MEAN CORPUSCULAR HEMOGLOBIN 33 pg (25-35); MEAN CORPUSCULAR HGB CONC 34 g/dL (31-37); MEAN CORPUSCULAR VOLUME 96 fL (79-100); MONO # 0.7 x10^3/uL (0.0-1.1); MONO % 12 % (0-9); NEUT # 2.4 x10^3/uL (1.8-7.7); NEUT % 40 % (31-73); PLATELET COUNT 200 x10^3/uL (140-400); RED BLOOD COUNT 3.46 x10^6/uL (4.30-5.70); RED CELL DISTRIBUTION WIDTH 15.5 % (11.5-14.5)
[2020-12-24 10:13] LABS: CALCIUM 8.2 mg/dL (8.5-10.1); CREATININE 0.9 mg/dL (0.7-1.3); GFR 85.5; POTASSIUM 4.1 mmol/L (3.5-5.1)
[2020-12-24 10:16] LABS: ALBUMIN 3.7 g/dL (3.4-5.0); ALBUMIN/GLOBULIN RATIO 1.3 (1.0-1.7); TOTAL BILIRUBIN 0.4 mg/dL (0.2-1.0); TOTAL PROTEIN 6.5 g/dL (6.4-8.2)
[2020-12-25 15:13] LABS: ALBUM 3.9 g/dL (2.9-4.4); ALPHA 1 0.3 g/dL (0.0-0.4); ALPHA 2 0.7 g/dL (0.4-1.0); BETA 0.9 g/dL (0.7-1.3); GAMMA 0.4 g/dL (0.4-1.8); KAPPA FREE 69.5 mg/L (3.3-19.4); KAPPA LAMBDA RATIO 6.68 (0.26-1.65); LAMBDA FREE 10.4 mg/L (5.7-26.3); PROTEIN TOTAL 6.2 g/dL (6.0-8.5); SPEP AG RATIO 1.7 (0.7-1.7)
== END ==
LOC: ONCLAB 09:09
PROVIDERS: ATTEND Internal Medicine Hematology & Oncology
DX: C90.00 Multiple myeloma not having achieved remission (principal)
CPT/HCPCS: 36415; 80053; 83520; 84165; 85025

== ENCOUNTER → 2020-12-31 | Outpatient (CLI) | payer OTHER ==
[2020-11-03 11:05] VITALS: BP 144/73
[2020-12-31 09:11] LABS: BASO % 0 % (0-3); EOS # 0.2 x10^3/uL (0.0-0.7); EOS % 4 % (0-3); HEMATOCRIT 32.3 % (39.0-53.0); HEMOGLOBIN 11.2 g/dL (13.0-17.5); LYMPH # 1.7 x10^3/uL (1.0-4.8); LYMPH % 32 % (24-48); MEAN CORPUSCULAR HEMOGLOBIN 33 pg (25-35); MEAN CORPUSCULAR HGB CONC 35 g/dL (31-37); MEAN CORPUSCULAR VOLUME 96 fL (79-100); MONO # 0.2 x10^3/uL (0.0-1.1); MONO % 5 % (0-9); NEUT # 3.2 x10^3/uL (1.8-7.7); NEUT % 60 % (31-73); PLATELET COUNT 165 x10^3/uL (140-400); RED BLOOD COUNT 3.37 x10^6/uL (4.30-5.70); RED CELL DISTRIBUTION WIDTH 15.6 % (11.5-14.5); WHITE BLOOD COUNT 5.4 x10^3/uL (4.0-11.0)
[2020-12-31 09:23] LABS: CALCIUM 7.9 mg/dL (8.5-10.1); CREATININE 0.9 mg/dL (0.7-1.3); GFR 85.5
[2020-12-31 09:29] LABS: ALBUMIN 3.7 g/dL (3.4-5.0); ALBUMIN/GLOBULIN RATIO 1.4 (1.0-1.7); TOTAL BILIRUBIN 0.4 mg/dL (0.2-1.0); TOTAL PROTEIN 6.3 g/dL (6.4-8.2)
[2021-01-01 16:13] LABS: ALBUM 3.5 g/dL (2.9-4.4); ALPHA 1 0.3 g/dL (0.0-0.4); ALPHA 2 0.6 g/dL (0.4-1.0); BETA 0.9 g/dL (0.7-1.3); GAMMA 0.4 g/dL (0.4-1.8); PROTEIN TOTAL 5.7 g/dL (6.0-8.5); SPEP AG RATIO 1.6 (0.7-1.7)
[2021-01-01 17:13] LABS: KAPPA FREE 46.5 mg/L (3.3-19.4); KAPPA LAMBDA RATIO 5.41 (0.26-1.65); LAMBDA FREE 8.6 mg/L (5.7-26.3)
== END ==
LOC: ONCLAB 08:23
PROVIDERS: ATTEND Internal Medicine Hematology & Oncology
DX: C90.00 Multiple myeloma not having achieved remission (principal)
CPT/HCPCS: 36415; 80053; 83520; 84165; 85025

== ENCOUNTER → 2021-01-06 | Outpatient (CLI) | payer OTHER ==
[2020-11-03 11:05] VITALS: BP 144/73
[2021-01-06 13:08] LABS: BASO % 0 % (0-3); EOS # 0.2 x10^3/uL (0.0-0.7); EOS % 4 % (0-3); HEMOGLOBIN 12.2 g/dL (13.0-17.5); LYMPH # 1.8 x10^3/uL (1.0-4.8); LYMPH % 35 % (24-48); MEAN CORPUSCULAR HEMOGLOBIN 33 pg (25-35); MEAN CORPUSCULAR HGB CONC 35 g/dL (31-37); MEAN CORPUSCULAR VOLUME 96 fL (79-100); MONO # 0.7 x10^3/uL (0.0-1.1); MONO % 14 % (0-9); NEUT # 2.4 x10^3/uL (1.8-7.7); NEUT % 47 % (31-73); PLATELET COUNT 162 x10^3/uL (140-400); RED BLOOD COUNT 3.66 x10^6/uL (4.30-5.70); RED CELL DISTRIBUTION WIDTH 15.5 % (11.5-14.5); WHITE BLOOD COUNT 5.2 x10^3/uL (4.0-11.0)
[2021-01-06 13:32] LABS: CALCIUM 8.7 mg/dL (8.5-10.1); CREATININE 0.9 mg/dL (0.7-1.3); GFR 85.5
[2021-01-06 13:37] LABS: ALBUMIN 3.8 g/dL (3.4-5.0); ALBUMIN/GLOBULIN RATIO 1.4 (1.0-1.7); TOTAL BILIRUBIN 0.4 mg/dL (0.2-1.0); TOTAL PROTEIN 6.6 g/dL (6.4-8.2)
== END ==
LOC: ONCLAB 13:00
PROVIDERS: ATTEND Internal Medicine Hematology & Oncology
DX: C90.00 Multiple myeloma not having achieved remission (principal); C79.51 Secondary malignant neoplasm of bone
CPT/HCPCS: 36415; 80053; 85025

== ENCOUNTER → 2021-01-14 | Outpatient (CLI) | payer OTHER ==
[2020-11-03 11:05] VITALS: BP 144/73
[2021-01-14 10:19] LABS: BASO % 0 % (0-3); EOS # 0.3 x10^3/uL (0.0-0.7); EOS % 4 % (0-3); HEMATOCRIT 33.4 % (39.0-53.0); HEMOGLOBIN 11.7 g/dL (13.0-17.5); LYMPH # 1.7 x10^3/uL (1.0-4.8); LYMPH % 25 % (24-48); MEAN CORPUSCULAR HEMOGLOBIN 34 pg (25-35); MEAN CORPUSCULAR HGB CONC 35 g/dL (31-37); MEAN CORPUSCULAR VOLUME 95 fL (79-100); MONO # 0.7 x10^3/uL (0.0-1.1); MONO % 11 % (0-9); NEUT # 3.9 x10^3/uL (1.8-7.7); NEUT % 59 % (31-73); PLATELET COUNT 193 x10^3/uL (140-400); RED CELL DISTRIBUTION WIDTH 15.6 % (11.5-14.5); WHITE BLOOD COUNT 6.6 x10^3/uL (4.0-11.0)
[2021-01-14 10:44] LABS: CALCIUM 8.9 mg/dL (8.5-10.1); GFR 75.7; POTASSIUM 4.1 mmol/L (3.5-5.1)
[2021-01-14 10:51] LABS: ALBUMIN 3.7 g/dL (3.4-5.0); ALBUMIN/GLOBULIN RATIO 1.4 (1.0-1.7); TOTAL BILIRUBIN 0.4 mg/dL (0.2-1.0); TOTAL PROTEIN 6.4 g/dL (6.4-8.2)
[2021-01-19 05:12] LABS: METHYLMALONIC ACID 369 nmol/L (0-378)
== END ==
LOC: ONCLAB 10:02
PROVIDERS: ATTEND Physician Assistant
DX: C90.00 Multiple myeloma not having achieved remission (principal)
CPT/HCPCS: 36415; 80053; 82607; 82728; 82746; 83540; 83550; 83921; 85025

== ENCOUNTER → 2021-01-21 | Outpatient (CLI) | payer OTHER ==
[2020-11-03 11:05] VITALS: BP 144/73
[2021-01-21 10:41] LABS: BASO % 0 % (0-3); EOS # 0.5 x10^3/uL (0.0-0.7); EOS % 7 % (0-3); HEMATOCRIT 34.9 % (39.0-53.0); LYMPH % 30 % (24-48); MEAN CORPUSCULAR HEMOGLOBIN 33 pg (25-35); MEAN CORPUSCULAR HGB CONC 34 g/dL (31-37); MEAN CORPUSCULAR VOLUME 97 fL (79-100); MONO # 0.5 x10^3/uL (0.0-1.1); MONO % 7 % (0-9); NEUT # 3.9 x10^3/uL (1.8-7.7); NEUT % 57 % (31-73); PLATELET COUNT 196 x10^3/uL (140-400); RED BLOOD COUNT 3.61 x10^6/uL (4.30-5.70); RED CELL DISTRIBUTION WIDTH 15.5 % (11.5-14.5); WHITE BLOOD COUNT 6.8 x10^3/uL (4.0-11.0)
[2021-01-21 11:06] LABS: CALCIUM 8.4 mg/dL (8.5-10.1); CREATININE 0.9 mg/dL (0.7-1.3); GFR 85.5; POTASSIUM 3.8 mmol/L (3.5-5.1)
[2021-01-21 11:12] LABS: ALBUMIN 3.6 g/dL (3.4-5.0); ALBUMIN/GLOBULIN RATIO 1.3 (1.0-1.7); TOTAL BILIRUBIN 0.4 mg/dL (0.2-1.0); TOTAL PROTEIN 6.4 g/dL (6.4-8.2)
== END ==
LOC: ONCLAB 10:10
PROVIDERS: ATTEND Physician Assistant
DX: C90.00 Multiple myeloma not having achieved remission (principal)
CPT/HCPCS: 36415; 80053; 85025

== ENCOUNTER → 2021-01-28 | Outpatient (CLI) | payer OTHER ==
[2020-11-03 11:05] VITALS: BP 144/73
[2021-01-28 09:23] LABS: BASO % 0 % (0-3); EOS # 0.3 x10^3/uL (0.0-0.7); EOS % 5 % (0-3); HEMATOCRIT 34.8 % (39.0-53.0); HEMOGLOBIN 11.9 g/dL (13.0-17.5); LYMPH # 1.6 x10^3/uL (1.0-4.8); LYMPH % 26 % (24-48); MEAN CORPUSCULAR HEMOGLOBIN 32 pg (25-35); MEAN CORPUSCULAR HGB CONC 34 g/dL (31-37); MEAN CORPUSCULAR VOLUME 95 fL (79-100); MONO # 0.6 x10^3/uL (0.0-1.1); MONO % 10 % (0-9); NEUT # 3.6 x10^3/uL (1.8-7.7); NEUT % 59 % (31-73); PLATELET COUNT 178 x10^3/uL (140-400); RED BLOOD COUNT 3.66 x10^6/uL (4.30-5.70); RED CELL DISTRIBUTION WIDTH 15.4 % (11.5-14.5); WHITE BLOOD COUNT 6.1 x10^3/uL (4.0-11.0)
[2021-01-28 09:39] LABS: CALCIUM 8.9 mg/dL (8.5-10.1); GFR 75.7; POTASSIUM 3.8 mmol/L (3.5-5.1)
[2021-01-28 09:43] LABS: ALBUMIN 3.7 g/dL (3.4-5.0); ALBUMIN/GLOBULIN RATIO 1.4 (1.0-1.7); TOTAL BILIRUBIN 0.4 mg/dL (0.2-1.0); TOTAL PROTEIN 6.4 g/dL (6.4-8.2)
== END ==
LOC: ONCLAB 08:56
PROVIDERS: ATTEND Physician Assistant
DX: C90.00 Multiple myeloma not having achieved remission (principal)
CPT/HCPCS: 36415; 80053; 85025

== ENCOUNTER → 2021-02-04 | Outpatient (CLI) | payer OTHER ==
[2020-11-03 11:05] VITALS: BP 144/73
[2021-02-04 09:53] LABS: BASO % 0 % (0-3); EOS # 0.3 x10^3/uL (0.0-0.7); EOS % 5 % (0-3); HEMATOCRIT 35.8 % (39.0-53.0); HEMOGLOBIN 12.1 g/dL (13.0-17.5); LYMPH # 1.6 x10^3/uL (1.0-4.8); LYMPH % 28 % (24-48); MEAN CORPUSCULAR HEMOGLOBIN 33 pg (25-35); MEAN CORPUSCULAR HGB CONC 34 g/dL (31-37); MEAN CORPUSCULAR VOLUME 96 fL (79-100); MONO # 0.7 x10^3/uL (0.0-1.1); MONO % 12 % (0-9); NEUT % 54 % (31-73); PLATELET COUNT 160 x10^3/uL (140-400); RED BLOOD COUNT 3.73 x10^6/uL (4.30-5.70); RED CELL DISTRIBUTION WIDTH 15.9 % (11.5-14.5); WHITE BLOOD COUNT 5.6 x10^3/uL (4.0-11.0)
[2021-02-04 10:06] LABS: CALCIUM 8.7 mg/dL (8.5-10.1); CREATININE 1.1 mg/dL (0.7-1.3); GFR 67.8; POTASSIUM 4.2 mmol/L (3.5-5.1)
[2021-02-04 10:11] LABS: ALBUMIN 3.9 g/dL (3.4-5.0); ALBUMIN/GLOBULIN RATIO 1.4 (1.0-1.7); TOTAL BILIRUBIN 0.5 mg/dL (0.2-1.0); TOTAL PROTEIN 6.6 g/dL (6.4-8.2)
[2021-02-05 17:14] LABS: ALBUM 3.7 g/dL (2.9-4.4); ALPHA 1 0.3 g/dL (0.0-0.4); ALPHA 2 0.7 g/dL (0.4-1.0); BETA 0.9 g/dL (0.7-1.3); GAMMA 0.3 g/dL (0.4-1.8); PROTEIN TOTAL 5.9 g/dL (6.0-8.5); SPEP AG RATIO 1.7 (0.7-1.7)
[2021-02-06 13:14] LABS: KAPPA FREE 11.1 mg/L (3.3-19.4); KAPPA LAMBDA RATIO 1.82 (0.26-1.65); LAMBDA FREE 6.1 mg/L (5.7-26.3)
== END ==
LOC: ONCLAB 09:21
PROVIDERS: ATTEND Internal Medicine Hematology & Oncology
DX: C90.00 Multiple myeloma not having achieved remission (principal)
CPT/HCPCS: 36415; 80053; 83520; 84165; 85025

== ENCOUNTER → 2021-02-11 | Outpatient (CLI) | payer OTHER ==
[2020-11-03 11:05] VITALS: BP 144/73
[2021-02-11 10:37] LABS: BASO % 0 % (0-3); EOS # 0.3 x10^3/uL (0.0-0.7); EOS % 5 % (0-3); HEMOGLOBIN 12.4 g/dL (13.0-17.5); LYMPH # 1.4 x10^3/uL (1.0-4.8); LYMPH % 27 % (24-48); MEAN CORPUSCULAR HEMOGLOBIN 33 pg (25-35); MEAN CORPUSCULAR HGB CONC 34 g/dL (31-37); MEAN CORPUSCULAR VOLUME 97 fL (79-100); MONO # 0.3 x10^3/uL (0.0-1.1); MONO % 6 % (0-9); NEUT # 3.2 x10^3/uL (1.8-7.7); NEUT % 62 % (31-73); PLATELET COUNT 139 x10^3/uL (140-400); RED BLOOD COUNT 3.74 x10^6/uL (4.30-5.70); RED CELL DISTRIBUTION WIDTH 16.1 % (11.5-14.5); WHITE BLOOD COUNT 5.1 x10^3/uL (4.0-11.0)
[2021-02-11 11:17] LABS: CREATININE 1.1 mg/dL (0.7-1.3); GFR 67.8; POTASSIUM 3.8 mmol/L (3.5-5.1)
[2021-02-11 11:18] LABS: ALBUMIN 3.9 g/dL (3.4-5.0); ALBUMIN/GLOBULIN RATIO 1.6 (1.0-1.7); TOTAL BILIRUBIN 0.5 mg/dL (0.2-1.0); TOTAL PROTEIN 6.4 g/dL (6.4-8.2)
== END ==
LOC: ONCLAB 09:53
PROVIDERS: ATTEND Physician Assistant
DX: C90.00 Multiple myeloma not having achieved remission (principal)
CPT/HCPCS: 36415; 80053; 85025

== ENCOUNTER → 2021-02-18 | Outpatient (CLI) | payer OTHER ==
[2020-11-03 11:05] VITALS: BP 144/73
[2021-02-18 09:10] LABS: BASO % 0 % (0-3); EOS # 0.2 x10^3/uL (0.0-0.7); EOS % 3 % (0-3); HEMATOCRIT 36.2 % (39.0-53.0); HEMOGLOBIN 12.2 g/dL (13.0-17.5); LYMPH # 1.1 x10^3/uL (1.0-4.8); LYMPH % 16 % (24-48); MEAN CORPUSCULAR HEMOGLOBIN 32 pg (25-35); MEAN CORPUSCULAR HGB CONC 34 g/dL (31-37); MEAN CORPUSCULAR VOLUME 96 fL (79-100); MONO # 0.8 x10^3/uL (0.0-1.1); MONO % 12 % (0-9); NEUT # 4.8 x10^3/uL (1.8-7.7); NEUT % 69 % (31-73); PLATELET COUNT 142 x10^3/uL (140-400); RED BLOOD COUNT 3.76 x10^6/uL (4.30-5.70)
[2021-02-18 09:24] LABS: CALCIUM 8.8 mg/dL (8.5-10.1); GFR 75.7; POTASSIUM 3.5 mmol/L (3.5-5.1)
[2021-02-18 09:31] LABS: ALBUMIN 3.5 g/dL (3.4-5.0); ALBUMIN/GLOBULIN RATIO 1.2 (1.0-1.7); TOTAL BILIRUBIN 0.5 mg/dL (0.2-1.0); TOTAL PROTEIN 6.4 g/dL (6.4-8.2)
[2021-02-19 13:28] LABS: ALBUM 3.7 g/dL (2.9-4.4); ALPHA 1 0.2 g/dL (0.0-0.4); ALPHA 2 0.7 g/dL (0.4-1.0); BETA 0.9 g/dL (0.7-1.3); GAMMA 0.3 g/dL (0.4-1.8); PROTEIN TOTAL 5.9 g/dL (6.0-8.5); SPEP AG RATIO 1.7 (0.7-1.7)
[2021-02-19 16:11] LABS: KAPPA FREE 11.2 mg/L (3.3-19.4)
== END ==
LOC: ONCLAB 08:46
PROVIDERS: ATTEND Internal Medicine Hematology & Oncology
DX: C90.00 Multiple myeloma not having achieved remission (principal)
CPT/HCPCS: 36415; 80053; 83520; 84165; 85025